=== PATIENT | female | born 1990 | race African-American/Black ===

== ENCOUNTER 2023-05-15 20:17 | Emergency (ER) | payer SELFPAY ==
[~2023-05-15] VITALS: Ht 167.6 cm; Wt 63.5 kg
[2023-05-15] MEDS ORDERED: IPRATROPIUM/ALBUTEROL SULFATE 3 ML SOLUTION IH ONE ×2 (20:30)
[2023-05-15 20:39] VITALS: PULSE 110; RESP 22
[2023-05-15 20:40] LABS: BASOPHILS # (AUTO) 0.05 K/uL (0.00-0.20); BASOPHILS % (AUTO) 0.6 % (0.0-5.0); EOSINOPHILS # (AUTO) 0.29 K/uL (0.00-0.70); EOSINOPHILS % (AUTO) 3.6 % (0.0-8.0); HEMATOCRIT 39.1 % (36-48); IMMATURE GRANULOCYTE ABSOLUTE 0.03 K/uL (0-1); LYMPHOCYTES # (AUTO) 1.8 K/uL (1.0-4.8); LYMPHOCYTES % (AUTO) 21.9 % (21.0-51.0); MEAN CORPUSCULAR HGB CONC 30.7 g/dL (32.0-36.0); MEAN CORPUSCULAR VOLUME 78.4 fL (79-99); MONOCYTES # (AUTO) 0.4 K/uL (0.1-1.0); MONOCYTES % (AUTO) 4.4 % (3.0-13.0); NEUTROPHILS # (AUTO) 5.6 K/uL (1.8-7.7); NEUTROPHILS % (AUTO) 69.1 % (40.0-77.0); PLATELET COUNT (AUTO) 433 K/uL (130-400); RED BLOOD CELL COUNT(AUTO) 4.99 MIL/uL (4.00-5.50); WHITE BLOOD COUNT (AUTO) 8.2 K/uL (4.8-10.8)
[2023-05-15 20:53] VITALS: PULSE 126; RESP 24
[2023-05-15 20:56] LABS: CREATININE 0.9 mg/dL (0.5-1.5)
[2023-05-15 21:00] LABS: ALBUMIN 3.6 g/dL (3.5-5.0); BILIRUBIN,TOTAL 0.2 mg/dL (0.2-1.0); MAGNESIUM 1.8 mg/dL (1.80-2.40); TOTAL PROTEIN, SERUM 7.5 g/dL (6.0-8.3)
[2023-05-15] MEDS ORDERED: LACTATED RINGERS 1000ML IV SCH (21:00)
[2023-05-15] MEDS ORDERED: SOLU-MEDROL 125MG VIAL IVP ONE (21:00)
[2023-05-15 21:11] LABS: SARS-CoV-2, RNA, NAAT NEGATIVE SARS CoV-2 (NEGATIVE)
[2023-05-15 21:13] LABS: INFLUENZA TYPE A Negative For Type A (NEGATIVE); INFLUENZA TYPE B Negative For Type B (NEGATIVE)
[2023-05-15 23:50] VITALS: PULSE 89; RESP 18
[2023-05-16 01:17] VITALS: PULSE 87; RESP 18
[2023-05-16] MEDS ORDERED: ALBUTEROL 0.083% 2.5 MG/3 ML INH IH ONE ×2 (01:30→02:30)
[2023-05-16 06:25] VITALS: PULSE 105; RESP 20
[2023-05-16] MEDS ORDERED: IPRATROPIUM/ALBUTEROL SULFATE 3 ML SOLUTION IH ONE ×2 (06:30)
[2023-05-16] MEDS ORDERED: PRED20TA3 PO (07:03)
[2023-05-16] MEDS ORDERED: ALBUHFA IH (07:03)
[2023-05-16] MEDS ORDERED: ALBU1.252 IH (07:03)
[2023-05-16] MEDS ORDERED: SOLU-MEDROL 125MG VIAL ONE (07:16)
[2023-05-16] MEDS ORDERED: SOLU-MEDROL 125MG VIAL IVP ONE (07:30)
[2023-05-16 07:46] VITALS: BP 109/62; PULSE 108; RESP 17; O2SAT 100
== END 2023-05-16 07:47 | disposition home or self-care (01) ==
LOC: EDH 20:17
DX: J45.901 Unspecified asthma with (acute) exacerbation (principal); Z20.822 Contact with and (suspected) exposure to COVID-19
CPT/HCPCS: 99285; 96374; 96361 ×2; 71045; 87635; 83735; 80053; 84703; 85025; 87804 ×2; 36415; 96376; 94640 ×4; C9803; J2930 ×2